=== PATIENT | female | born 1945 | race Caucasian/White ===

== ENCOUNTER 2022-12-28 23:23 | Emergency (ER) | payer OTHER ==
[~2022-12-28] VITALS: Ht 172.7 cm; Wt 98.2 kg
[2022-12-28] MEDS ORDERED: LEVOXYL88 MCG PO (23:34)
[2022-12-28] MEDS ORDERED: ZESTRIL20 MG PO (23:35)
[2022-12-28] MEDS ORDERED: AMILORIDE HYDROC5 MG PO (23:35)
[2022-12-28] MEDS ORDERED: ALENDRONATE SOD70 M1 PO (23:36)
[2022-12-28] MEDS ORDERED: ATORVASTATIN CA80 M1 PO (23:37)
[2022-12-28] MEDS ORDERED: FLAXSEED1000 MG PO (23:38)
[2022-12-28] MEDS ORDERED: PREGABALIN50 MG PO (23:38)
[2022-12-28 23:48] LABS: BASO % 0.5 % (0.0-1.0); EOS # 0.1 10*3/uL (0.0-0.4); EOS % 1.3 % (1.0-4.0); HEMATOCRIT 34.2 % (37.0-47.0); LYMPH # 1.6 10*3/uL (1.3-4.4); LYMPH % 19.3 % (27.0-41.0); MEAN CELL VOLUME 89.3 fl (81.0-99.0); MEAN CORPUSCULAR HGB 29.5 pg (27.0-31.0); MEAN PLATELET VOLUME 9.2 fl (9.6-12.3); MONO # 0.8 10*3/uL (0.1-1.0); MONO % 9.1 % (3.0-9.0); NEUT # 5.8 10*3/uL (2.3-7.9); NEUT % 69.6 % (47.0-73.0); PLATELET COUNT AUTOMATED 230 10*3/uL (130-400); RED BLOOD COUNT 3.83 10*6/uL (4.10-5.10); WHITE BLOOD COUNT 8.4 10*3/uL (4.8-10.8)
[2022-12-29 00:12] LABS: ALKALINE PHOSPHATASE 90 U/L (46-116); BUN 8 mg/dl (9-23); CHLORIDE 107 mmol/L (98-107); POTASSIUM 3.3 mmol/L (3.4-5.1); SGPT/ALT 20 U/L (10-49); TOTAL PROTEIN 6.3 gm/dL (6.0-8.0)
== END 2022-12-29 02:45 | disposition home or self-care (01) ==
LOC: ED 23:23
PROVIDERS: Internal Medicine
DX: J44.1 Chronic obstructive pulmonary disease with (acute) exacerbation (principal); F41.9 Anxiety disorder, unspecified; E87.6 Hypokalemia; E87.20 Acidosis, unspecified; D64.9 Anemia, unspecified